=== PATIENT | male | born 1995 | race Caucasian/White ===

== ENCOUNTER 2020-06-13 16:42 | Emergency (ER) | payer OTHER ==
[~2020-06-13] VITALS: Ht 182.9 cm; Wt 79.5 kg
[2020-06-13 19:32] VITALS: BP 135/74
== END 2020-06-13 19:37 | disposition home or self-care (01) ==
LOC: M ED 16:42
DX: J34.89 Other specified disorders of nose and nasal sinuses (principal)

== ENCOUNTER → 2022-03-18 | Outpatient (CLI) | payer OTHER ==
[~2022-03-18] MED LIST: ISOVUE-300 61% 5ML SYRINGE As Ordered ONE; LIDOCAINE 1% MDV 20ML VIAL As Ordered ONE; PROHANCE 279.3MG/ML 5ML VIAL As Ordered ONE
== END ==
LOC: M RADPRO 06:37
PROVIDERS: ATTEND Orthopaedic Surgery
DX: S43.431A Superior glenoid labrum lesion of right shoulder, initial encounter (principal); X58.XXXA Exposure to other specified factors, initial encounter; Y92.9 Unspecified place or not applicable
CPT/HCPCS: 23350; 73223; 77002; A9576; Q9967